=== PATIENT | female | born 1945 | race Caucasian/White ===

== ENCOUNTER 2016-07-15 08:24 | Day surgery (SDC) | payer BC, OTHER ==
--- NOTE | ~2016-07-15 | HP ---
History And Physical [place] [id number] [facility] [place] [address] NAME: YFN MTZ : 47 STATUS : [facility]#: [id number] AGE: 71 ADM/REG DATE : 07/15/16 MR#: [id number] REPORT SERV DATE: 08/14/16 DICTATED BY: LUI CARBONE DATE: 08/13/16 REPORT STATUS : Draft TRANSCRIBED BY: MODL DATE: 08/13/16 DATE OF ADMISSION: 07/15/2016 CHIEF COMPLAINT: Followup gastric ulcer. PHYSICAL EXAMINATION: HEENT: Normal. NECK: Supple. BREAST: Not done. CARDIAC: No murmur or gallop. CHEST: Clear to auscultation and percussion. CARDIAC: Normal, otherwise. ABDOMEN: Soft, nontender. : Deferred. RECTAL: Previously done. EXTREMITIES: No deformity or edema. NEUROLOGIC: Motor and sensory grossly intact. Affect is appropriate. IMPRESSION: Normal physical exam preoperatively. PLAN: EGD, this is for 07/15/2016 in addition to the short form. MG/DESHAWN Lui Carbone M.D. / [id number] CC: Lui Carbone M.D.
--- NOTE | ~2016-07-15 | EGD ---
EGD REPORT [facility] [address] [address] NAME: YFN FRASER : 47 STATUS : REG [facility]#: [id number] AGE: 71 ADM/REG DATE : 07/15/16 MR#: [id number] REPORT SERV DATE: 07/15/16 DICTATED BY: LUI CARBONE DATE: 07/15/16 REPORT STATUS : Draft [facility]: [facility] DATE: 07/15/16 Endoscopy Center Patient Name: Yfn Fraser Date of : 1945 Attending MD: LUI CARBONE MD Procedure Date No Time: 07/15/2016 Procedure: Upper GI endoscopy Indications: Follow-up of acute duodenal ulcer Medicines: Propofol per Anesthesia Complications: No immediate complications. Procedure: Pre-Anesthesia Assessment: - ASA Grade Assessment: III - A patient with severe systemic disease. After obtaining informed consent, the endoscope was passed under direct vision. Throughout the procedure, the patient's blood pressure, pulse, and oxygen saturations were monitored continuously. The GIF [id number] was introduced through the mouth, and advanced to the second part of duodenum. The upper GI endoscopy was accomplished without difficulty. The patient tolerated the procedure well. Findings: The examined esophagus was normal. The exam of the duodenum was otherwise normal. The pylorus was fixed open A single medium-sized scar was found in the gastric antrum. contraction in the distal antrum at site of previous ulcer with healed ulcer Impression: - Normal esophagus. - Scar in the pylorus. Recommendation: - The patient will be observed post-procedure, until all discharge criteria are met. - Return to previous diet today. - Use Protonix (pantoprazole) 40 mg PO daily today. - The findings and recommendations were discussed with the patient and their family. - After the procedure, if you experience any pain in abdomen or chest,shortness of breath,fever,chills,blood in stool,rectal bleeding,vomiting of any material,nausea,black stools or weakness or dizziness, GO TO THE EMERGENCY IMMEDIATELY!!!!!!!!! Procedure Code(s): --- Professional --- EGD REPORT [address] [address] NAME: YFN FRASER : 47 STATUS : REG [facility] PAT#: [id number] AGE: 71 ADM/REG DATE : 07/15/16 MR#: [id number] REPORT SERV DATE: 07/15/16 DICTATED BY: LUI CARBONE. DATE: 07/15/16 REPORT STATUS : Draft TRANSCRIBED BY: [employer] DATE: 07/15/16 11100, Esophagogastroduodenoscopy, flexible, transoral; diagnostic, including collection of specimen(s) by brushing or washing, when performed (separate procedure) Diagnosis Code(s): --- Professional --- K31.89, Other diseases of stomach and duodenum K26.3, Acute duodenal ulcer without hemorrhage or perforation CPT copyright 2013 [employer]. All rights reserved. The codes documented in this report are preliminary and upon biochemical development engineer review may be revised to meet current compliance requirements. Lui Carbone MD LUI CARBONE MD 07/15/2016 11:15 AM This report has been signed electronically. Number of Addenda: 0 Note Initiated On: 07/15/2016 10:29 AM Scope Withdrawal Time 0 hours 0 minutes 0 seconds [address] [place] [address]
[~2016-07-15 08:24] MED LIST: ASA5GR PO; ASAB PO; ASABAYER PO; BUSPAR10 PO; CELEXA20 PO; COD LIVER PO; COLCRYS0.6 MG PO; COREG6 PO; CRESTOR20 MG PO; CYMBALTA60 PO; GLUCPH PO; GOODY'S EX-STR1 EAC1 PO; IMDUR30 PO; KDUR10 PO; KEPPRA500 PO; KLOR-CON 1010 MEQ PO; L20 PO; L40 PO; LOP25 PO; MAXIMUM D3 PO; MULTIVIT/MIN PO; MYCOSCROI TOP; NITROGLYCERIN 400 MCG OR; NITROMIST; NITROMIST400 MCG SL; NITROSPRAY SL; PCET PO; PLAVIX PO; PR25 PO; PRILOSEC40 MG PO; PROMEGA PO; PROTONIX PO; T PO; TEARS PLUS OPH; ULTRAM50 PO; VICODINTAB PO; ZOCOR20 PO; ZOCOR40 PO; ZOFRAN4 PO
[2016-09-24] MEDS ORDERED: L40 PO (14:27)
[2016-09-24] MEDS ORDERED: PRILOSEC40 MG PO (14:27)
[2016-09-24] MEDS ORDERED: L20 PO (14:27)
[2016-09-24] MEDS ORDERED: COREG6 PO (14:28)
[2016-09-24] MEDS ORDERED: CRESTOR5 MG PO (14:28)
[2016-09-24] MEDS ORDERED: CYMBALTA60 PO (14:30)
[2016-09-24] MEDS ORDERED: PLAVIX PO (14:30)
[2016-09-24] MEDS ORDERED: MAXIMUM D3 PO (14:31)
[2016-09-24] MEDS ORDERED: FORTAMET500 MG PO (14:33)
[2016-09-24] MEDS ORDERED: KEPPRA500 PO (14:34)
[2016-09-24] MEDS ORDERED: KDUR10 PO (14:34)
[2016-09-24] MEDS ORDERED: ASAB PO (14:35)
[2016-09-24] MEDS ORDERED: DERMASARRA EX (14:40)
== END 2016-07-15 23:59 | disposition home health service (06) ==
LOC: DMU 08:24
PROVIDERS: Internal Medicine Gastroenterology
PROC: 0DJ08ZZ Inspection of Upper Intestinal Tract, Via Natural or Artificial Opening Endoscopic (ICD-10-PCS; principal; 2016-07-15 11:30)
DX: K26.3 Acute duodenal ulcer without hemorrhage or perforation (principal); R56.9 Unspecified convulsions; I25.10 Atherosclerotic heart disease of native coronary artery without angina pectoris; I11.0 Hypertensive heart disease with heart failure; I50.9 Heart failure, unspecified; E78.00 Pure hypercholesterolemia, unspecified; E11.9 Type 2 diabetes mellitus without complications
CPT/HCPCS: 82962

== ENCOUNTER 2016-07-20 12:43 | Emergency (ER) | payer BC, OTHER ==
[2016-07-20 14:19] LABS: BASOPHILS 0.4 %; BASOPHILS ABSOLUTE 0.05 10/3/uL (0.0-0.16); EOSINOPHILS 3.3 %; EOSINOPHILS ABSOLUTE 0.37 10/3/uL (0.0-0.53); HEMATOCRIT 25.9 % (36.0-48.0); HEMOGLOBIN 8.3 g/dL (12.0-16.0); IMMATURE GRANULOCYTES 0.3 %; IMMATURE GRANULOCYTES ABSOLUTE 0.03 10/3/uL (0.0-0.11); LYMPHOCYTES 15.3 %; LYMPHOCYTES ABSOLUTE 1.72 10/3/uL (0.67-4.30); MONOCYTES 10.2 %; MONOCYTES ABSOLUTE 1.15 10/3/uL (0.21-1.20); NEUTROPHILS 70.5 %; NEUTROPHILS ABSOLUTE 7.92 10/3/uL (2.02-8.40); RBC DISTRIBUTION WIDTH 16.5 % (12.0-16.0); RED CELL COUNT 3.17 10/6/uL (4.0-5.6); WHITE BLOOD CELLS 11.2 10/3/uL (4.5-10.5)
[2016-07-20 14:20] LABS: MANUAL DIFF NO %; MEAN CORPUSCULAR HEMOGLOB 26.2 pg (26.0-34.0); MEAN CORPUSCULAR VOLUME 81.7 fL (80-100); PLATELET COUNT 404 10/3/uL (150-400)
[2016-07-20 14:31] LABS: BUN (BLOOD UREA NITROGEN) 19 MG/DL (6-23); CALCIUM, SERUM 8.3 MG/DL (8.5-10.4); CHLORIDE, SERUM 108 MMOL/L (96-112); CO2 (CARBON DIOXIDE) 26 MMOL/L (24-34); CREATININE 0.74 MG/DL (0.55-1.02); GFR AFRICAN AMERICAN 95 ML/MIN (>=60); GFR NON AFRICAN AMERICAN 82 ML/MIN (>=60); GLUCOSE, SERUM 93 MG/DL (60-99); POTASSIUM, SERUM 3.5 MMOL/L (3.5-5.3); SODIUM, SERUM 143 MMOL/L (135-148)
[2016-09-24] MEDS ORDERED: PRILOSEC40 MG PO (14:27)
[2016-09-24] MEDS ORDERED: L20 PO (14:27)
[2016-09-24] MEDS ORDERED: L40 PO (14:27)
[2016-09-24] MEDS ORDERED: CRESTOR5 MG PO (14:28)
[2016-09-24] MEDS ORDERED: COREG6 PO (14:28)
[2016-09-24] MEDS ORDERED: PLAVIX PO (14:30)
[2016-09-24] MEDS ORDERED: CYMBALTA60 PO (14:30)
[2016-09-24] MEDS ORDERED: MAXIMUM D3 PO (14:31)
[2016-09-24] MEDS ORDERED: FORTAMET500 MG PO (14:33)
[2016-09-24] MEDS ORDERED: KDUR10 PO (14:34)
[2016-09-24] MEDS ORDERED: KEPPRA500 PO (14:34)
[2016-09-24] MEDS ORDERED: ASAB PO (14:35)
[2016-09-24] MEDS ORDERED: DERMASARRA EX (14:40)
== END 2016-07-20 15:48 | disposition home or self-care (01) ==
LOC: ER 12:43
PROVIDERS: Nurse Practitioner
PROC: 2Y41X5Z Packing of Nasal Region using Packing Material (ICD-10-PCS; principal; 2016-07-20)
DX: R04.0 Epistaxis (principal); D64.9 Anemia, unspecified; I10 Essential (primary) hypertension; E11.9 Type 2 diabetes mellitus without complications; Z95.5 Presence of coronary angioplasty implant and graft; Z88.5 Allergy status to narcotic agent; Z88.8 Allergy status to other drugs, medicaments and biological substances; Z79.899 Other long term (current) drug therapy; Z79.82 Long term (current) use of aspirin
CPT/HCPCS: 80048; 85025; 99283

== ENCOUNTER 2016-09-24 15:40 | Inpatient (IN) | payer BC, OTHER ==
--- NOTE | ~2016-09-24 | DS ---
Discharge Summary [place] [address] [place]. [address] NAME: YFN MTZ : 47 STATUS : DIS IN PAT#: [id number] AGE: 71 ADM/REG DATE : 09/24/16 MR#: [id number] REPORT SERV DATE: 10/01/16 DICTATED BY: IGOR FERNÁNDEZ DATE: 09/30/16 REPORT STATUS : Draft TRANSCRIBED BY: MODL DATE: 09/30/16 ADMISSION DATE: 09/24/2016 DISCHARGE DATE: 09/30/2016 DISCHARGE DIAGNOSES: 1. Acute encephalopathy, likely secondary to seizure disorder. 2. Acute gout attack during the hospital stay. 3. History of coronary artery disease. 4. Hypertension. 5. Anemia. 6. Diabetes type 2. 7. History of GI bleed. 8. Hyperlipidemia. 9. Transient hypoxic respiratory failure during the hospital stay, resolved, and being discharged on room air. CONSULTS: 1. Neurology. 2. Orthopedic Surgery. PROCEDURES: Aspiration under sterile conditions of right knee effusion. HOSPITAL COURSE: This is a 71-year-old lady who was admitted to the hospital with initial diagnosis of acute encephalopathy. For details, please refer to excellent H and P by Dr. Paola Mckeon. In summary, the patient was admitted and was evaluated for potential seizures as the chief cause for encephalopathy. The patient did have an EEG which showed some focal abnormalities such as a sharp wave that may be concerning for possible seizure focus as well as the presence of complex partial seizure. The patient's antiepileptic drugs were adjusted by Neurology. The patient was started on Keppra 750 mg p.o. b.i.d. which is an increase from 500 mg p.o. b.i.d., and the patient was also started on Vimpat 100 mg p.o. b.i.d. With such medication changes, the patient's mentation improved and the patient remained stable throughout the rest of the hospital stay. Also during this hospital stay, the patient developed a right knee pain for which Orthopedic Surgery was consulted and patient underwent a sterile aspiration of the right knee effusion. With that the patient was actually diagnosed with acute gout attack. Given the patient's history of GI ulcers and GI bleeding, NSAIDs were avoided. The patient was to be started on colchicine; however, with concerns for possible interaction between colchicine and Coreg, the patient was given steroids instead. The patient actually responded well to steroids and the patient's right knee rapidly improved. The patient was seen by Physical Therapy who cleared her for discharge home with home health care. The patient is now being discharged home to continue close outpatient followup. DISPOSITION: Home. DISCHARGE MEDICATIONS: Discharge Summary [address] [address] NAME: YFN MTZ : 46 STATUS : DIS IN PAT#: [id number] AGE: 71 ADM/REG DATE : 09/24/16 MR#: [id number] REPORT SERV DATE: 10/01/16 DICTATED BY: IGOR FERNÁNDEZ DATE: 09/30/16 REPORT STATUS : Draft TRANSCRIBED BY: DESHAWN DATE: 09/30/16 1. Vimpat 100 mg p.o. b.i.d. as a new medication. 2. Keppra 750 mg p.o. b.i.d. as an increased dose. 3. Lonoke 5/325 one tab p.o. q.6 hours p.r.n., 15 tabs. 4. The patient was also started on allopurinol 100 mg p.o. daily to prevent future attacks. Otherwise, there are no medication changes. FOLLOWUP: Please follow up with PCP in the next one to two weeks. A total of 35 minutes spent in coordinating this patient's discharge today. DICTATED BY: MD EDOUARD Martinez/DESHAWN Igor Fernández MD / [id number] CC: MD Jennifer Martinez
--- NOTE | ~2016-09-24 | OP ---
Record Of Operation [facility] [address] [place] [id number] NAME: YFN MTZ : 46 STATUS : ADM IN PAT#: [id number] AGE: 71 ADM/REG DATE : 09/24/16 MR#: [id number] REPORT SERV DATE: 09/27/16 DICTATED BY: SHAZIA LOVE DATE: 09/27/16 REPORT STATUS : Draft TRANSCRIBED BY: MODL DATE: 09/27/16 DATE OF PROCEDURE: 09/26/2016 PREPROCEDURE DIAGNOSIS: Right knee effusion. POSTPROCEDURE DIAGNOSIS: Gout versus infection. PROCEDURE: Aspiration under sterile conditions of right knee effusion. COMPLICATIONS: None. SPECIMENS: Approximately 80 mL of yellow opaque fluid sent to micro and path. COMPLICATIONS: None. CONDITION UPON COMPLETION OF PROCEDURE: Stable in room. PROCEDURE IN DETAIL: After the patient was identified, correct side and site was identified, time-out with the nurse as well as myself, her right knee was prepped with Betadine. Then, using sterile technique, I utilized an infrapatellar lateral portal, and was able to aspirate 80 mL of the yellow opaque fluid. The knee wound was then dressed with a Band-Aid and she tolerated the procedure well. JUMA/DESHAWN Shazia Love M.D. / [id number] CC: Wesley Carmona CANDACE JO
--- NOTE | ~2016-09-24 | CN ---
Consultation Report [facility] [address] [place]. [address] NAME: YFN MTZ : 47 STATUS : ADM IN PAT#: [id number] AGE: 71 ADM/REG DATE : 09/24/16 MR#: [id number] REPORT SERV DATE: 09/27/16 DICTATED BY: SHAZIA LOVE DATE: 09/27/16 REPORT STATUS : Draft TRANSCRIBED BY: MODL DATE: 09/27/16 CONSULTATION DATE OF CONSULTATION: 09/26/2016 CHIEF COMPLAINT: Right knee pain and swelling. HISTORY OF PRESENT ILLNESS: This pleasant 71-year-old, was admitted to the hospital for her mental status change with a history of known seizures and she had complained about right knee pain. Radiographs were taken, which were normal, and I was subsequently consulted for evaluation and treatment of her right knee pain. PAST MEDICAL HISTORY: Significant for coronary artery disease with stents and pacemaker, CHF, type 2 diabetes, gout, renal stent, diverticulitis, depression, anxiety, GI bleed, and vitamin D deficiency. PAST SURGICAL HISTORY: Includes a pacemaker, appendectomy, hysterectomy, cholecystectomy, and oophorectomy. ALLERGIES: MULTIPLE MEDICAL ALLERGIES, THIS IS REVIEWED IN THE CHART. SOCIAL HISTORY: Denies alcohol or tobacco. She lives with friends. FAMILY HISTORY: Significant for cancer and stroke. MEDICATIONS: Include Coreg, Plavix, Cymbalta, Lasix, Keppra, metformin, Prilosec, Crestor, and potassium. REVIEW OF SYSTEMS: On my review in the room, she denied chest pain, shortness of breath, headache, nausea, vomiting, or any other constitutional symptoms per full 14-point systematic review. PHYSICAL EXAMINATION: GENERAL: On exam, I see a lady who looks stated age. A and O x3. Pleasant, cooperative with the exam. GENERAL: No apparent distress. HEENT: Pupils equally round and reactive to light and accommodation. Extraocular muscles intact. CHEST: Clear to auscultation bilaterally. HEART: Regular rate and rhythm. ABDOMEN: Soft, nontender, and nondistended. Bowel sounds are present. EXTREMITIES: Bilateral upper extremities and left lower extremity show good distal pulses. No peripheral edema. Good sensation. Full active and passive range of motion. Normal 5/5 strength. The right knee shows a large effusion, mildly warm. The patella is ballotable. Consultation Report [facility] [address] [place]. [address] NAME: YFN MTZ : 46 STATUS : ADM IN PAT#: [id number] AGE: 71 ADM/REG DATE : 09/24/16 MR#: [id number] REPORT SERV DATE: 09/27/16 DICTATED BY: SHAZIA LOVE DATE: 09/27/16 REPORT STATUS : Draft TRANSCRIBED BY: DESHAWN DATE: 09/27/16 There is palpable Luna cyst. Range of motion is from 5 to 60 with pain through the arc of motion but otherwise, the skin is clean, dry, and intact. There is no erythema, no drainage, good distal pulses. No peripheral edema. Good sensation. IMAGING: Radiographs of hip, femur, and knee are all normal with good joint spaces, no fractures, normal alignment, and normal cartilaginous spaces. ASSESSMENT AND PLAN: 71-year-old with acute gouty flare-up versus infection. I have discussed with her the risks and benefits of aspiration. She verbalizes understanding and wishes to proceed with an aspiration. JUMA/DESHAWN Shazia Love M.D. / [id number] CC: Wesley Carmona CANDACE JO
--- NOTE | ~2016-09-24 | EEG ---
Electroencephalogram [facility] [address] [facility]. [address] NAME: YFN MTZ : 46 STATUS : ADM IN PAT#: [id number] AGE: 71 ADM/REG DATE : 09/24/16 MR#: [id number] REPORT SERV DATE: 09/25/16 DICTATED BY: DATE: REPORT STATUS : Draft TRANSCRIBED BY: MODL DATE: 09/25/16 NEUROLOGY EEG REPORT CLINICAL INDICATIONS: Seizures. DESCRIPTION: This EEG was performed using 10/20 electrode placement system. During the EEG study, symmetric background activity was noted with predominant occipital rhythm of roughly 9 hertz. Photic stimulation was performed with appropriate driving responses. Throughout the EEG study, frequent sharp wave was seen, with a phase reversal in the P3 electrodes, occasionally noted in the T5 electrode, otherwise no electrographic seizure activity was noted. The patient was noted to have a couple episodes of generalized slowing. During the EEG evaluation, no clinical seizure was captured. The patient achieved drowsy state during the EEG study. INTERPRETATION: This EEG study was obtained during awake and drowsy state, may be considered abnormal secondary to presence of sharp wave with phase reversal mostly in the left parietal area with occasional episodes occurring in the left eft temporal area. The patient, in addition, was noted to have a couple episodes of generalized slowing but otherwise no electrographic seizure activity was seen during today's EEG evaluation. Focal abnormalities such as A sharp wave may be concerning for possible seizure focus as well as the presence of complex partial seizure. Clinical correlation is recommended. ODIN/DESHAWN Vlad Jett MD / [id number] CC: Wesley Carmona CANDACE JO
--- NOTE | ~2016-09-24 | HP ---
History And Physical [facility] [address] [place]. [address] NAME: YFN MTZ : 46 STATUS : ADM IN PAT#: [id number] AGE: 71 ADM/REG DATE : 09/24/16 MR#: [id number] REPORT SERV DATE: 09/24/16 DICTATED BY: PAOLA WASHINGTON DATE: 09/24/16 REPORT STATUS : Draft TRANSCRIBED BY: MODLane DATE: 09/24/16 DATE OF ADMISSION: 09/24/2016 CHIEF COMPLAINT: Altered mental status starting this morning, history of seizure disorder, history of CVA. HISTORY: This is a very pleasant 71-year-old female. She does have a past medical history significant for strokes, history of seizure disorder, history of coronary artery disease with prior pacemaker placement and CHF, history of gout, diabetes type 2, renal stent, history of diverticulitis, prior history of GI bleed, depression, history of vitamin D deficiency, history of urinary tract infection, and recurrent falls. She had a third-degree AV block for which she had pacemaker and hypertension, presenting today to [facility] accompanied with her daughter which she gives the entire history with altered mental status that started this morning. According to the patient's daughter and the grandson who is accompanying the patient, she was in her usual state of health yesterday as well as this morning. Her grandson talked with the patient around 8 o'clock and she was fine. She did not have any signs of confusion, and between 8 o'clock and 12 o'clock, apparently, the patient went to the bathroom couple of times, and one time people who where with her in the house at that time went to the bathroom since she spent 30 minutes in the bathroom and found her on the toilet that she has been extremely confused and she had been altered, not following commands, and at times agitated. The daughter was in her way to check her mother, as she does always in the mornings, and while by the time she went there, the ambulance was already called and evaluating the patient. It is important to note that the patient lives with some friends and she is in process to moving with her daughter. At that time, the daughter is telling me that although there were no with signs of seizures activity, she is confused and she has long postictal periods after seizure episodes, but no body aches or has experienced any seizure like activity, and she says she is taking Keppra as supposed to be taken. The patient has been brought to the [facility]. She went to get a CT scan of the brain. She got some Ativan, and she remained confused at times, but she is able currently to follow some commands, and she is alert and oriented x2. She is denying any chest pain or increasing shortness of breath. No PND or orthopnea. No dysuria. No increasing urinary frequency or urgency. No diarrhea or constipation. She is complaining of right knee and right femoral pain and there is no reported falls this morning, though she has had a history of recurrent falls lately, although she is supposed to use a cane, she has not used a cane and she is walking by herself. After initial evaluation in the emergency room, Hospitalist Service has been asked for admission for further evaluation, and treatment. PAST MEDICAL HISTORY: Significant for coronary artery disease with prior stent, history of past pacemaker placement for third-degree AV block, CHF, diabetes type 2 noninsulin dependent, gout, renal stent, history of diverticulitis, depression with anxiety, prior history of GI bleed, and vitamin D deficiency. PAST SURGICAL HISTORY: Include status post pacemaker placement, appendectomy, hysterectomy, cholecystectomy, oophorectomy. History And Physical [address] [place]. [address] NAME: YFN MTZ : 46 STATUS : ADM IN [facility]#: [id number] AGE: 71 ADM/REG DATE : 09/24/16 MR#: [id number] REPORT SERV DATE: 09/24/16 DICTATED BY: PAOLA WASHINGTON DATE: 09/24/16 REPORT STATUS : Draft TRANSCRIBED BY: DESHAWN DATE: 09/24/16 ALLERGIES: SHE IS ALLERGIC TO MULTIPLE MEDICATIONS INCLUDING BETA JOSE DAVID, HYDROCORTISONE, FLUOXETINE, NEOMYCIN, MORPHINE, HYDROCODONE, BACITRACIN, AND POLYMYXIN B. SOCIAL HISTORY: She is not a smoker. She is , lives with friends. She has two daughters. No alcohol. No IV drugs. FAMILY HISTORY: Heart disease, cancer, and stroke. MEDICATIONS: Her home medications include aspirin, camphor menthol p.r.n., Coreg, also vitamin D3, Plavix, Cymbalta, Lasix, Keppra, metformin, Prilosec, potassium chloride, and Crestor. REVIEW OF SYSTEMS: 14-point review of system has been obtained and pertinent positive has been listed into the history of present illness. Otherwise, negative except those underlying above. OBJECTIVE: VITAL SIGNS: On arrival, her T-max 99, blood pressure 148/62, heart rate 96, respiratory rate 20, and saturating 100% on room air. GENERAL: She is a very pleasant, well-developed, well-nourished female. She is a fairly confused, but she is arousable. She is alert and oriented x2. She is nonfocal. She follows some commands. HEENT: Show pupils equal, round, reactive to light. Extraocular movements intact. Some dry mucous membranes. No conjunctival pallor. No scleral icterus. Trachea is midline. LYMPH: No cervical lymphadenopathy or inguinal lymphadenopathy appreciated. CHEST EVAL: Bilateral air entry. Clear anteroposterior. No wheezes, crackles, or rhonchi appreciated. CARDIOVASCULAR: She has regular rate and rhythm. Paced. S1-S2 positive. No S3, no S4. No murmurs, rubs, or gallops appreciated. ABDOMEN: Soft. There is no tenderness, no guarding, no rebound. Active bowel sounds. EXTREMITIES: No clubbing, cyanosis. There is some trace edema, but also some swelling on the right knee which is tender to palpation. LABORATORY DATA: Labs from today include sodium 140, potassium 3.9, chloride 104, CO2 of 27, BUN 14, creatinine 0.68, glucose is 106. Her liver function tests are normal with a total bilirubin of 0.3, alkaline phosphatase 243, ALT 27, AST 33. Also, her troponin is less than 0.02. Her ammonia level is 24. Her white count is 13.3, hemoglobin 8.7, hematocrit 28.8, and platelets 425. Her INR is 1. Her UA performed here in the emergency room has been negative. Her chest x-ray, portable, performed in the emergency room has shown no acute cardiopulmonary abnormalities appreciated, and the pelvic x-ray show negative AP pelvis, just degenerative joint disease. ASSESSMENT AND PLAN: This is a very pleasant 71-year-old female with: 1. Altered mental status. 2. History of seizure disorder. 3. History of cerebrovascular accident. History And Physical [address] [address] NAME: YFN MTZ : 46 STATUS : ADM IN PAT#: [id number] AGE: 71 ADM/REG DATE : 09/24/16 MR#: [id number] REPORT SERV DATE: 09/24/16 DICTATED BY: PAOLA WASHINGTON DATE: 09/24/16 REPORT STATUS : Draft TRANSCRIBED BY: DESHAWN DATE: 09/24/16 4. History of coronary artery disease, status post stent. 5. History of third-degree atrioventricular block, status post pacemaker. 6. History of renal artery stenosis, status post stent. 7. Hypertension. 8. History of urinary tract infections. 9. Anemia. 10.History of gastrointestinal bleed. 11.Diabetes type 2. PLAN: 1. The patient is going to be admitted to Hospitalist Service. I am going to keep her n.p.o. currently except medications. I am going to place her on Keppra IV. Continue her aspirin and Plavix. Repeat a CT of the brain in the morning and EEG as well, 2D echo and carotid ultrasound. Provide p.r.n. Ativan as needed. Consult Dr. Jett, Neurology, for further recommendation as well. Continue her aspirin and Plavix. 2. History of coronary artery disease. We are going to continue her home medications. Rule her out for CA by serial cardiac enzymes, serial EKGs, and 2D echo. 3. Hypertension. Continue beta jose david. Provide p.r.n. hydralazine as needed. 4. History of anemia. We are going to check all anemia studies. Check vitamin B12 and folic acid. 5. History of GI bleed. Continue her Prilosec. 6. History of diabetes type 2. While the patient is n.p.o., we are going to check Accu- Cheks q.6 hours, sliding scale insulin subcutaneously level 1 and check a hemoglobin A1c. 7. Hyperlipidemia. We will continue her home medications and check a fasting lipid profile. 8. Mild leukocytosis, possible reactive. We are going to check UA, urine cultures. Repeat a chest x-ray in the morning. Check blood cultures as well. Check an ESR and a CRP as well as a uric acid level. 9. Right knee and right femoral pain. We are going to x-ray her right femur as well as the right knee. Her AP pelvic x-ray already performed in the emergency room, does not show any evidence of fracture. The bony pelvic appear normal. We are going to provide reasonable pain, nausea control. Keep her aspiration precautions, seizure precautions, and fall precautions, as well as GI and DVT prophylaxis. That has been discussed extensively with the patient's daughter. All the questions have been answered in full. It is worthwhile to note that the patient is going to be followed up by Hospitalist Service. The patient remains a full code according to patient wishes prior stated. CF/DESHAWN Paola Washington M.D. / [id number] History And Physical [address] [address] NAME: YFN MTZ : 47 STATUS : ADM IN [facility]#: [id number] AGE: 71 ADM/REG DATE : 09/24/16 MR#: [id number] REPORT SERV DATE: 09/24/16 DICTATED BY: PAOLA WASHINGTON DATE: 09/24/16 REPORT STATUS : Draft TRANSCRIBED BY: DESHAWN DATE: 09/24/16 CC: Wesley Carmona CANDACE JO
--- NOTE | ~2016-09-24 | CN ---
Consultation Report [facility] [address] [place]. [address] NAME: YFN MTZ : 46 STATUS : ADM IN PAT#: [id number] AGE: 71 ADM/REG DATE : 09/24/16 MR#: [id number] REPORT SERV DATE: 09/25/16 DICTATED BY: CHRISTINE GREENFIELD DATE: 09/25/16 REPORT STATUS : Draft TRANSCRIBED BY: MODLane DATE: 09/25/16 NEUROLOGY CONSULTATION DATE OF CONSULTATION: 09/25/2016 REASON FOR CONSULTATION: Acute encephalopathy, history of stroke, and recent seizure. HOSPITALIST: Dr. Johan Espinal. HISTORY OF PRESENT ILLNESS: The patient is a 71-year-old female who had a stroke in April, which left her with very minimal deficits. She also has a history of seizures and is on Keppra therapy. Yesterday, she mentioned that she became somewhat encephalopathic and in the afternoon was pretty sure she had a seizure. The next thing she knew, she woke up and she was in the emergency department at [facility]. She has only had two seizures in the past including the one yesterday and was placed on Keppra therapy. She states that she is very compliant with taking her medication, does not miss a dose. She denies any recent fever, chills, cough, nausea, or vomiting. According to the patient's daughter and grandson, who accompanied the patient, she was in her usual state of health until around 8 o'clock. She did not have any confusion between eight and noon. She went to the bathroom a couple of times and she was found on the toilet extremely confused and altered. She was agitated. The daughter called 911 and she was brought to the emergency department for further evaluation and treatment. It was suspected that she had had a seizure and was in a postictal state. PAST MEDICAL HISTORY: Stroke, seizure, coronary artery disease, third-degree AV block (status post pacemaker placement), congestive heart failure, gout, diabetes mellitus type 2, renal artery stenosis (status post renal artery stent), diverticulitis, GI bleed, depression, vitamin D deficiency, urinary tract infections, recurrent falls, hypertension, peripheral vascular disease, mesenteric ischemia, and headache. PAST SURGICAL HISTORY: Status post pacemaker placement, renal stent placement, appendectomy, total abdominal hysterectomy with BSO, and cholecystectomy. HOME MEDICATION: List includes aspirin 81 mg daily, camphor and menthol lotion, Coreg 6.25 mg b.i.d., D3 10,000 units weekly, Plavix 75 mg daily, Cymbalta 60 mg daily, Lasix 20 mg at bedtime and 40 mg in the morning, Keppra 500 mg b.i.d., Fortamet 500 mg b.i.d., Prilosec 40 mg daily, potassium chloride SR 10 mg daily, Crestor 5 mg at bedtime. ALLERGIES: BETA JUAN JOSE (INTOLERANCE), HYDROCODONE, HYDROCORTISONE, PROZAC, NEOSPORIN, AND MORPHINE. SOCIAL HISTORY: The patient is . She lives with friends. She has two daughters. She does not smoke, drink, alcohol, or use illicits. Consultation Report [address] [place]. [address] NAME: YFN MTZ : 46 STATUS : ADM IN [facility]#: [id number] AGE: 71 ADM/REG DATE : 09/24/16 MR#: [id number] REPORT SERV DATE: 09/25/16 DICTATED BY: CHRISTINE GREENFIELD DATE: 09/25/16 REPORT STATUS : Draft TRANSCRIBED BY: DESHAWN DATE: 09/25/16 FAMILY HISTORY: The patient's mother from a stroke. She also had COPD. Her father with lung cancer. He had cardiovascular disease. She has no sisters and has one brother with cardiovascular disease. REVIEW OF SYSTEMS: For pertinent positives, please see HPI. PHYSICAL EXAMINATION: VITAL SIGNS: The patient is a 71-year-old female who stands 5 feet 3 inches tall and weighs 212 pounds. She is afebrile. Heart rate 80, respiratory rate 18, O2 saturations on room air 95%, and blood pressure 177/73. NEURO: The patient is alert. She is oriented x4, pleasant, communicates appropriately. Pupils are 4 mm. PERRLA. Cranial nerves 2 through 12 are intact. No deficits noted. Cranial nerve deficits noted on exam. She can move all extremities x4. [id number]-[id number], no ataxia. She is unable to perform [id number] due to pain. She does have a very slight pronator drift on the left. No dysmetria, tremor, or asterixis. The patient has upper extremity strength of 4/5 bilaterally. Upper DTRs 2+ bilaterally. No reported sensory deficits. Lower extremity strength is 3/5 bilaterally. Unable to do lower DTRs due to the patient's knee pain. No reported sensory deficits except slight diminished sensation, vibratory, and temperature sensation from the toes to above the ankles. Position sense is intact. She can walk with assistance, but her locomotion is slow and gait is mildly ataxic. She cannot tandem and Romberg is untestable. NECK: No carotid bruits, JVD, or thyromegaly. CHEST: Lung sounds clear. CARDIAC: Regular rate and rhythm. LABORATORY DATA: CBC shows a white count of 12, hemoglobin and hematocrit of 8 and 26. BMP: Glucose is 200. Cholesterol values are normal. Sedimentation rate 114, ammonia 24, A1c 6.1. CT of the brain, no acute changes. Chest x-ray, no acute changes. Echocardiogram pending and carotid duplex study pending. ASSESSMENT/PLAN: 1. Seizures. The patient is compliant with her medications. The patient will undergo an EEG at this time. Her Keppra will be increased to 750 mg b.i.d. She will be placed on seizure precautions and Ativan will be ordered p.r.n. seizure activity. There was a lot of motion artifact on her original CT of the brain. It will be repeated tomorrow with contrast to rule out any structural causes. Lab work will be checked and lastly Ultram will be discontinued since this can cause seizure activity. She will be placed instead on Percocet 5/325 mg p.r.n. pain. 2. History of stroke. Again, she will have repeat imaging in the morning. Should continue aspirin, Plavix, and statin. PT and OT will be consulted. 3. Acute encephalopathy, resolved. This most likely was due to her postictal state. 4. Mild leukocytosis. The patient's white blood cell count was 13.3 on admission and is now 12. The patient is afebrile. Procalcitonin will be checked. We may need to Consultation Report [place] [address] [facility] [id number] NAME: YFN MTZ : 47 STATUS : ADM IN [facility]#: [id number] AGE: 71 ADM/REG DATE : 09/24/16 MR#: [id number] REPORT SERV DATE: 09/25/16 DICTATED BY: CHRISTINE GREENFIELD DATE: 09/25/16 REPORT STATUS : Draft TRANSCRIBED BY: DESHAWN DATE: 09/25/16 consider a lumbar puncture if everything else comes back negative. Thank you again for including us in consultation. We will follow with you. SHANTELL/DESHAWN Christine Greenfield DNP, ACNP-BC / [id number] CC: Wesley Carmona CANDACE JO
[2016-09-24 14:01] LABS: BASOPHILS 0.5 %; BASOPHILS ABSOLUTE 0.07 10/3/uL (0.0-0.16); EOSINOPHILS 2.4 %; EOSINOPHILS ABSOLUTE 0.32 10/3/uL (0.0-0.53); HEMATOCRIT 28.8 % (36.0-48.0); HEMOGLOBIN 8.7 g/dL (12.0-16.0); IMMATURE GRANULOCYTES 0.5 %; IMMATURE GRANULOCYTES ABSOLUTE 0.06 10/3/uL (0.0-0.11); LYMPHOCYTES 13.1 %; LYMPHOCYTES ABSOLUTE 1.74 10/3/uL (0.67-4.30); MANUAL DIFF NO %; MEAN CORPUS HGB CONC 30.2 g/dL (32.0-36.0); MEAN CORPUSCULAR HEMOGLOB 23.6 pg (26.0-34.0); MEAN CORPUSCULAR VOLUME 78.3 fL (80-100); MEAN PLATELET VOLUME 9.4 fL (9.2-13.0); MONOCYTES 8.3 %; NEUTROPHILS 75.2 %; NEUTROPHILS ABSOLUTE 9.97 10/3/uL (2.02-8.40); PLATELET COUNT 425 10/3/uL (150-400); RBC DISTRIBUTION WIDTH 20.1 % (12.0-16.0); RED CELL COUNT 3.68 10/6/uL (4.0-5.6); WHITE BLOOD CELLS 13.3 10/3/uL (4.5-10.5)
[2016-09-24 14:09] LABS: INTERNATIONAL NORMAL RATI 1.2 UNITS (-); PARTIAL THROMBO TIME 26.7 SEC (22.5-37.2); PROTIME (NOT ORD) 14.6 SEC (12.0-14.5)
[2016-09-24 14:12] LABS: WBC (NOT ORDERED) (RFLEX) 0 (0-5)
[2016-09-24 14:17] LABS: CALCIUM, SERUM 8.8 MG/DL (8.5-10.4); CHLORIDE, SERUM 104 MMOL/L (96-112); CO2 (CARBON DIOXIDE) 27 MMOL/L (24-34); CREATININE 0.68 MG/DL (0.55-1.02); GFR AFRICAN AMERICAN 103 ML/MIN (>=60); GFR NON AFRICAN AMERICAN 89 ML/MIN (>=60); GLUCOSE, SERUM 106 MG/DL (60-99); POTASSIUM, SERUM 3.9 MMOL/L (3.5-5.3); SGOT(AST) 33 U/L (5-40); SGPT(ALT) 27 U/L (5-65); SODIUM, SERUM 140 MMOL/L (135-148); TOTAL BILIRUBIN 0.3 MG/DL (0-1.2); TROPONIN I <0.02 NG/ML (<0.05)
[2016-09-24 14:19] LABS: ASCORBIC ACID (UR NOT ORDER) NEG (NEG); BILIRUBIN, URINE NEGATIVE (NEG); ER URINALYSIS TAT 0 Hrs 08 Mins; KETONE, URINE NEGATIVE (NEG); LEUKOCYTE ESTERASE(NOT OR NEG (NEG); NITRITE (URINE) NEG (NEG)
[2016-09-24 14:20] LABS: A/G RATIO 0.6 (0.7-1.9); ALBUMIN 2.9 G/DL (3.5-5.0); ALKALINE PHOSPHATASE 243 U/L (45-117); BUN (BLOOD UREA NITROGEN) 14 MG/DL (6-23); GLOBULIN 4.9 G/DL (2.5-4.1); TOTAL PROTEIN 7.8 G/DL (6.0-8.5)
[~2016-09-24 15:40] MED LIST changes: +CRESTOR5 MG PO; +DERMASARRA EX; +FORTAMET500 MG PO
[2016-09-24 20:33] LABS: B NATRIURETIC PEPTIDE (BNP) 163.4 PG/ML (< 100.0)
[2016-09-24 21:29] LABS: GLYCOHEMOGLOBIN (HbA1c) 6.1 % (4.7-6.1)
[2016-09-24 22:57] LABS: CPK 80 U/L (0-200); TROPONIN I <0.02 NG/ML (<0.05)
[2016-09-24 22:58] LABS: CK-MB 1.5 NG/ML
[2016-09-25 06:18] LABS: BASOPHILS 0.3 %; BASOPHILS ABSOLUTE 0.04 10/3/uL (0.0-0.16); EOSINOPHILS 1.4 %; EOSINOPHILS ABSOLUTE 0.17 10/3/uL (0.0-0.53); IMMATURE GRANULOCYTES 0.3 %; IMMATURE GRANULOCYTES ABSOLUTE 0.04 10/3/uL (0.0-0.11); LYMPHOCYTES 12.2 %; LYMPHOCYTES ABSOLUTE 1.47 10/3/uL (0.67-4.30); MEAN CORPUS HGB CONC 30.8 g/dL (32.0-36.0); MEAN CORPUSCULAR HEMOGLOB 23.4 pg (26.0-34.0); MONOCYTES 9.1 %; MONOCYTES ABSOLUTE 1.09 10/3/uL (0.21-1.20); NEUTROPHILS 76.7 %; NEUTROPHILS ABSOLUTE 9.22 10/3/uL (2.02-8.40); PLATELET COUNT 414 10/3/uL (150-400); RBC DISTRIBUTION WIDTH 19.8 % (12.0-16.0); RED CELL COUNT 3.42 10/6/uL (4.0-5.6)
[2016-09-25 06:23] LABS: MANUAL DIFF NO %
[2016-09-25 06:35] LABS: A/G RATIO 0.5 (0.7-1.9); ALBUMIN 2.5 G/DL (3.5-5.0); BUN (BLOOD UREA NITROGEN) 12 MG/DL (6-23); CALCIUM, SERUM 8.3 MG/DL (8.5-10.4); CHLORIDE, SERUM 107 MMOL/L (96-112); CO2 (CARBON DIOXIDE) 25 MMOL/L (24-34); CREATININE 0.64 MG/DL (0.55-1.02); GFR AFRICAN AMERICAN 105 ML/MIN (>=60); GFR NON AFRICAN AMERICAN 90 ML/MIN (>=60); GLOBULIN 4.6 G/DL (2.5-4.1); SGPT(ALT) 24 U/L (5-65); SODIUM, SERUM 140 MMOL/L (135-148); TOTAL PROTEIN 7.1 G/DL (6.0-8.5); TROPONIN I <0.02 NG/ML (<0.05)
[2016-09-25 06:36] LABS: ALKALINE PHOSPHATASE 207 U/L (45-117); CHOLESTEROL 104 MG/DL (< 200); CK-MB 1.2 NG/ML; CPK 102 U/L (0-200); GLUCOSE, SERUM 200 MG/DL (60-99); HDL CHOLESTEROL 52 MG/DL (> 49); LDL CHOLESTEROL 36 MG/DL (< 130); NON-HDL CHOLESTEROL 52 MG/DL (< 160); TRIGLYCERIDE 83 MG/DL (< 150)
[2016-09-25 06:37] LABS: SGOT(AST) 37 U/L (5-40)
[2016-09-25 13:30] LABS: FREE T4 1.35 NG/DL (0.76-1.46)
[2016-09-25 13:31] LABS: PROLACTIN 3.2 NG/ML; ULTRASENSITIVE TSH 0.41 MCIU/ML (0.358-3.740)
[2016-09-25 13:32] LABS: FOLATE 95.3 NG/ML (>5.2)
[2016-09-25 17:05] LABS: T PROTEIN (ELECT)(NOT OR 7.5 G/DL (6.0-8.5)
[2016-09-25 17:07] LABS: RETICULOCYTE COUNT 1.9 % (0.5-2.9); RETICULOCYTE COUNT ABSOLUTE 64.6 10/3/uL (20.2-119.8)
[2016-09-25 17:17] LABS: ASCORBIC ACID (UR NOT ORDER) NEG (NEG); BILIRUBIN, URINE NEGATIVE (NEG); KETONE, URINE 20 MG/DL (NEG); LEUKOCYTE ESTERASE(NOT OR NEG (NEG); WBC (NOT ORDERED) (RFLEX) 1 (0-5)
[2016-09-26 05:06] LABS: BASOPHILS 0.4 %; BASOPHILS ABSOLUTE 0.06 10/3/uL (0.0-0.16); EOSINOPHILS 0.6 %; EOSINOPHILS ABSOLUTE 0.09 10/3/uL (0.0-0.53); HEMATOCRIT 27.9 % (36.0-48.0); HEMOGLOBIN 8.5 g/dL (12.0-16.0); IMMATURE GRANULOCYTES 0.3 %; IMMATURE GRANULOCYTES ABSOLUTE 0.04 10/3/uL (0.0-0.11); LYMPHOCYTES 10.9 %; LYMPHOCYTES ABSOLUTE 1.59 10/3/uL (0.67-4.30); MEAN CORPUS HGB CONC 30.5 g/dL (32.0-36.0); MEAN CORPUSCULAR HEMOGLOB 23.4 pg (26.0-34.0); MEAN CORPUSCULAR VOLUME 76.9 fL (80-100); MONOCYTES ABSOLUTE 1.17 10/3/uL (0.21-1.20); NEUTROPHILS 79.8 %; NEUTROPHILS ABSOLUTE 11.62 10/3/uL (2.02-8.40); PLATELET COUNT 447 10/3/uL (150-400); RED CELL COUNT 3.63 10/6/uL (4.0-5.6); WHITE BLOOD CELLS 14.6 10/3/uL (4.5-10.5)
[2016-09-26 05:09] LABS: MANUAL DIFF NO %
[2016-09-26 05:23] LABS: BUN (BLOOD UREA NITROGEN) 10 MG/DL (6-23); CALCIUM, SERUM 8.1 MG/DL (8.5-10.4); CHLORIDE, SERUM 110 MMOL/L (96-112); CO2 (CARBON DIOXIDE) 21 MMOL/L (24-34); GFR AFRICAN AMERICAN 114 ML/MIN (>=60); GFR NON AFRICAN AMERICAN 98 ML/MIN (>=60); POTASSIUM, SERUM 3.8 MMOL/L (3.5-5.3); SODIUM, SERUM 144 MMOL/L (135-148)
[2016-09-26 05:25] LABS: GLUCOSE, SERUM 84 MG/DL (60-99)
[2016-09-26 19:56] LABS: BD FL LYMPH (NOT ORD) 2 %; BF BASO (NOT OF) 0 %; BF LARGE MONONUCLEAR 0 %; BF TOTAL CELL CT (NOT ORD 62950 /MM3; BODY FLUID EOS (NOT ORD) 0 %; BODY FLUID SEG (NOT ORD) 98 %
[2016-09-26 19:57] LABS: BODY FLUID RBC (NOT ORD) 10000 /MM3
[2016-09-26 19:58] LABS: BD FL SOURCE (NOT ORD) KNEE
[2016-09-27 06:46] LABS: BASOPHILS 0.2 %; BASOPHILS ABSOLUTE 0.02 10/3/uL (0.0-0.16); BUN (BLOOD UREA NITROGEN) 12 MG/DL (6-23); CALCIUM, SERUM 8.5 MG/DL (8.5-10.4); CHLORIDE, SERUM 107 MMOL/L (96-112); CO2 (CARBON DIOXIDE) 25 MMOL/L (24-34); CREATININE 0.53 MG/DL (0.55-1.02); EOSINOPHILS 0.1 %; EOSINOPHILS ABSOLUTE 0.01 10/3/uL (0.0-0.53); GFR AFRICAN AMERICAN 111 ML/MIN (>=60); GFR NON AFRICAN AMERICAN 96 ML/MIN (>=60); GLUCOSE, SERUM 154 MG/DL (60-99); HEMATOCRIT 27.7 % (36.0-48.0); HEMOGLOBIN 8.4 g/dL (12.0-16.0); IMMATURE GRANULOCYTES ABSOLUTE 0.12 10/3/uL (0.0-0.11); LYMPHOCYTES 8.6 %; LYMPHOCYTES ABSOLUTE 1.08 10/3/uL (0.67-4.30); MANUAL DIFF NO %; MEAN CORPUS HGB CONC 30.3 g/dL (32.0-36.0); MEAN CORPUSCULAR HEMOGLOB 23.1 pg (26.0-34.0); MEAN CORPUSCULAR VOLUME 76.3 fL (80-100); MEAN PLATELET VOLUME 8.8 fL (9.2-13.0); MONOCYTES 2.8 %; MONOCYTES ABSOLUTE 0.35 10/3/uL (0.21-1.20); NEUTROPHILS 87.3 %; NEUTROPHILS ABSOLUTE 10.98 10/3/uL (2.02-8.40); PLATELET COUNT 463 10/3/uL (150-400); POTASSIUM, SERUM 3.6 MMOL/L (3.5-5.3); RBC DISTRIBUTION WIDTH 20.1 % (12.0-16.0); RED CELL COUNT 3.63 10/6/uL (4.0-5.6); SODIUM, SERUM 141 MMOL/L (135-148); WHITE BLOOD CELLS 12.6 10/3/uL (4.5-10.5)
[2016-09-28 04:44] LABS: CALCIUM, SERUM 9.1 MG/DL (8.5-10.4); CHLORIDE, SERUM 110 MMOL/L (96-112); CO2 (CARBON DIOXIDE) 25 MMOL/L (24-34); CREATININE 0.68 MG/DL (0.55-1.02); GFR AFRICAN AMERICAN 103 ML/MIN (>=60); GFR NON AFRICAN AMERICAN 89 ML/MIN (>=60); GLUCOSE, SERUM 129 MG/DL (60-99); POTASSIUM, SERUM 4.2 MMOL/L (3.5-5.3); SODIUM, SERUM 143 MMOL/L (135-148)
[2016-09-28 04:45] LABS: BUN (BLOOD UREA NITROGEN) 20 MG/DL (6-23)
[2016-09-28 04:53] LABS: BASOPHILS 0.1 %; BASOPHILS ABSOLUTE 0.02 10/3/uL (0.0-0.16); EOSINOPHILS 0 %; HEMATOCRIT 26.1 % (36.0-48.0); IMMATURE GRANULOCYTES ABSOLUTE 0.18 10/3/uL (0.0-0.11); LYMPHOCYTES 11.6 %; LYMPHOCYTES ABSOLUTE 2.12 10/3/uL (0.67-4.30); MEAN CORPUS HGB CONC 30.7 g/dL (32.0-36.0); MEAN CORPUSCULAR HEMOGLOB 23.7 pg (26.0-34.0); MEAN CORPUSCULAR VOLUME 77.2 fL (80-100); MONOCYTES 9.5 %; MONOCYTES ABSOLUTE 1.73 10/3/uL (0.21-1.20); NEUTROPHILS 77.8 %; NEUTROPHILS ABSOLUTE 14.15 10/3/uL (2.02-8.40); NUCLEATED RED BLOOD CELLS 0.6 /100WBC (0-0); PLATELET COUNT 510 10/3/uL (150-400); RBC DISTRIBUTION WIDTH 20.3 % (12.0-16.0); RED CELL COUNT 3.38 10/6/uL (4.0-5.6)
[2016-09-28 04:54] LABS: MANUAL DIFF NO %; WHITE BLOOD CELLS 18.2 10/3/uL (4.5-10.5)
[2016-09-28 11:41] LABS: A/G 0.86 RATIO (0.9-2.10); ALB RELATIVE % 46.3 % (60.0-89.0); ALBUMIN (ELECTRO) 3.47 GM/DL (3.2-5.5); ALPHA 1 (ELECTRO) 0.29 GM/DL (0.1-0.4); ALPHA 1 RELAT % (NOT ORD) 3.9 % (1.0-4.0); ALPHA 2 (ELECTRO) 1.33 GM/DL (0.5-1.10); ALPHA 2 RELAT % 17.7 % (4.5-26.0); BETA GLOBULIN (SPE) 1.14 GM/DL (0.60-1.30); BETA RELATIVE % 15.2 % (9.0-22.0); GAMMA GLOBULIN (SPE) 1.27 G/DL (0.70-1.60); GAMMA RELAT % 16.9 % (6.0-22.0)
[2016-09-29 05:31] LABS: BASOPHILS 0.3 %; BASOPHILS ABSOLUTE 0.04 10/3/uL (0.0-0.16); EOSINOPHILS 0.1 %; EOSINOPHILS ABSOLUTE 0.02 10/3/uL (0.0-0.53); HEMATOCRIT 28.3 % (36.0-48.0); HEMOGLOBIN 8.5 g/dL (12.0-16.0); IMMATURE GRANULOCYTES 2.2 %; IMMATURE GRANULOCYTES ABSOLUTE 0.34 10/3/uL (0.0-0.11); LYMPHOCYTES 18.6 %; LYMPHOCYTES ABSOLUTE 2.91 10/3/uL (0.67-4.30); MEAN CORPUSCULAR HEMOGLOB 23.5 pg (26.0-34.0); MEAN CORPUSCULAR VOLUME 78.4 fL (80-100); MEAN PLATELET VOLUME 9.1 fL (9.2-13.0); MONOCYTES 7.9 %; MONOCYTES ABSOLUTE 1.24 10/3/uL (0.21-1.20); NEUTROPHILS 70.9 %; NEUTROPHILS ABSOLUTE 11.08 10/3/uL (2.02-8.40); NUCLEATED RED BLOOD CELLS 1.1 /100WBC (0-0); PLATELET COUNT 543 10/3/uL (150-400); RBC DISTRIBUTION WIDTH 20.6 % (12.0-16.0); RED CELL COUNT 3.61 10/6/uL (4.0-5.6); WHITE BLOOD CELLS 15.6 10/3/uL (4.5-10.5)
[2016-09-29 05:32] LABS: MANUAL DIFF NO %
[2016-09-29 05:41] LABS: CALCIUM, SERUM 8.8 MG/DL (8.5-10.4); CHLORIDE, SERUM 114 MMOL/L (96-112); CO2 (CARBON DIOXIDE) 22 MMOL/L (24-34); CREATININE 0.58 MG/DL (0.55-1.02); GFR AFRICAN AMERICAN 108 ML/MIN (>=60); GFR NON AFRICAN AMERICAN 93 ML/MIN (>=60); POTASSIUM, SERUM 4.5 MMOL/L (3.5-5.3); SODIUM, SERUM 144 MMOL/L (135-148)
[2016-09-29 05:42] LABS: BUN (BLOOD UREA NITROGEN) 16 MG/DL (6-23); GLUCOSE, SERUM 79 MG/DL (60-99)
[2016-09-30] MEDS ORDERED: VIMPAT100 MG PO (10:20)
[2016-09-30] MEDS ORDERED: KEPPRA750 MG PO (10:21)
[2016-09-30] MEDS ORDERED: NORCO1 TA1 PO (10:23)
[2016-09-30] MEDS ORDERED: Z100 PO (10:34)
== END 2016-09-30 13:10 | disposition home health service (06) | DRG 100 ==
LOC: ER 15:40 → 6NO 16:52
PROVIDERS: Hospitalist; Internal Medicine; Nurse Practitioner; Orthopaedic Surgery
PROC: 0S9C3ZX Drainage of Right Knee Joint, Percutaneous Approach, Diagnostic (ICD-10-PCS; principal; 2016-09-26)
DX: G40.909 Epilepsy, unspecified, not intractable, without status epilepticus (principal); J96.01 Acute respiratory failure with hypoxia; G93.41 Metabolic encephalopathy; I70.1 Atherosclerosis of renal artery; I10 Essential (primary) hypertension; E55.9 Vitamin D deficiency, unspecified; I73.9 Peripheral vascular disease, unspecified; M10.9 Gout, unspecified; E78.5 Hyperlipidemia, unspecified; F32.9 Major depressive disorder, single episode, unspecified; I25.10 Atherosclerotic heart disease of native coronary artery without angina pectoris; E11.649 Type 2 diabetes mellitus with hypoglycemia without coma; D50.9 Iron deficiency anemia, unspecified; G47.33 Obstructive sleep apnea (adult) (pediatric); E66.01 Morbid (severe) obesity due to excess calories; Z90.710 Acquired absence of both cervix and uterus; Z79.02 Long term (current) use of antithrombotics/antiplatelets; Z88.8 Allergy status to other drugs, medicaments and biological substances; Z88.5 Allergy status to narcotic agent; Z91.81 History of falling; Z87.440 Personal history of urinary (tract) infections; Z82.3 Family history of stroke; Z95.0 Presence of cardiac pacemaker; Z79.82 Long term (current) use of aspirin; Z86.73 Personal history of transient ischemic attack (TIA), and cerebral infarction without residual deficits; Z68.37 Body mass index [BMI] 37.0-37.9, adult
CPT/HCPCS: 70450; 70470; 71010; 72170; 73552-RT; 73560-LT; 73560-RT; 80048; 80053; 80061; 81001; 82140; 82272; 82306; 82550; 82553; 82607; 82728; 82746; 82962; 83036; 83540; 83550; 83615; 83735; 83880; 84146; 84155; 84165; 84439; 84443; 84484; 84550; 85025; 85045; 85610; 85652; 85730; 86140; 86334; 87015; 87040; 87070; 87075; 87102; 87116; 87205; 89051; 89060; 93005; 93880; 94640; 95816; 96374; 97116-GP; 97161-GP; 97165-GO; 97530-GP; 97535-GO; 99285; A9270-GY; C8929; C9254; J0360; J1170; J1953; J2916; J2920; J2930; Q9957; Q9967